=== PATIENT | male | born 1950 | race Asian ===

== ENCOUNTER 2022-08-03 13:32 | Emergency (ER) | payer OTHER ==
[~2022-08-03] VITALS: Ht 175.3 cm; Wt 70.3 kg
== END 2022-08-03 15:45 | disposition home or self-care (01) ==
LOC: ER 13:32
DX: T75.4XXA Electrocution, initial encounter (principal); W86.8XXA Exposure to other electric current, initial encounter
CPT/HCPCS: 93005; 93010